=== PATIENT | male | born 1955 | race Two or more races ===

== ENCOUNTER 2024-05-01 10:09 | Emergency (ER) | payer OTHER ==
[~2024-05-01] VITALS: Ht 160 cm; Wt 64.4 kg
[2024-05-01] MEDS ORDERED: METFORMIN HCL1000 M3 PO (11:02)
[2024-05-01] MEDS ORDERED: KETOROLAC TROMETHAMINE 60 MG VIAL IM STA (12:42)
[2024-05-01] MEDS ORDERED: KETOROLAC TROMETHAMINE 60 MG VIAL IM ONE (13:18)
== END 2024-05-01 13:40 | disposition home or self-care (01) ==
LOC: ER 10:10
DX: M25.511 Pain in right shoulder (principal); I10 Essential (primary) hypertension; Z88.0 Allergy status to penicillin
CPT/HCPCS: 72040; 96372; 99283; J1885